=== PATIENT | female | born 1960 | race Caucasian/White ===

== ENCOUNTER → 2021-08-08 | Outpatient (CLI) | payer OTHER ==
[~2021-08-08] MED LIST: CATHETER FLUSH 10 ML SYR IV PRN; HOLD METFORMIN - RECEIVED CONTRAST 20 ML VIAL IV SCH; IOHEXOL 350 MG/ML 100 ML (OMNIPAQUE 350) VIAL IV ONE; NS 100 ML (IVPB) BAG IV ONE
[2021-08-08 08:49] LABS: POTASSIUM 3.4 MMOL/L (3.6-5.0)
[2021-08-08 08:50] LABS: ALBUMIN 3.7 GM/DL (3.2-4.5); BILIRUBIN,TOTAL 0.5 MG/DL (0.1-1.0); CALCIUM 9.3 MG/DL (8.5-10.1); CREATININE SERUM 0.74 MG/DL (0.60-1.30); TOTAL PROTEIN 7.1 GM/DL (6.4-8.2)
--- NOTE | 2021-08-08 18:01 | Diagnostic Imaging Report ---
CLINICAL INDICATIONS: Patient with abnormal ultrasound. Prior mass removed. Patient states it was a cyst and not malignant. EXAM: Axial CT scan of the neck soft tissues performed with 75 mL of Omnipaque 350 IV contrast. Sagittal and coronal reformatted images were created. COMPARISON: None. FINDINGS: There is a low-density mass with peripheral thickening located in the right lateral upper neck region which is just below the level of the right parotid gland tail. This mass measures 3.2 cm x 2.3 cm x 2.8 cm (AP x Trans x CC). This mass has a lobulated configuration and there is no adjacent fat stranding. This mass abuts the lateral aspect of the right sternocleidomastoid muscle. There is no other neck soft tissue mass seen. No significant lymphadenopathy. Salivary glands are unremarkable. Thyroid gland is unremarkable. There is asymmetry of the right posterior hypopharyngeal wall which is difficult to delineate on this exam. There is no fat plane between this area and the right longus coli muscle. There is nonspecific prominence of the supraglottic larynx with no definitive measurable mass. Thyroid gland is unremarkable. The visualized portions of the nasopharynx, and oropharynx are unremarkable. Visualized portions of the lower cavity, tongue, sublingual and submandibular regions are unremarkable. Neck vascular structures show no significant abnormality. Emphysematous lung disease is seen. Limited visualization of the intracranial structures are unremarkable. There is complete consolidation of the left maxillary sinus. The remainder of the paranasal sinuses are unremarkable. Mastoid air cells are clear. Cervical spine degenerative disease is noted. IMPRESSION: 1: There is a cystic mass involving the right upper lateral aspect of the neck which abuts the outer portion of the right sternocleidomastoid muscle and is just inferior to the right parotid gland tail. There is no adjacent fat stranding. This lesion is nonspecific and considerations may include a metastatic necrotic lymph node. Solitary Whitelaw's tumor cannot be excluded. Since there is no adjacent inflammation an infected cyst or abscess is unlikely. 2: There is complete consolidation of the left maxillary sinus. 3: The remainder of this exam shows no other significant abnormality. Dictated by: Dictated on workstation # [id number]
== END ==
LOC: LAB FS 08:02
PROVIDERS: ATTEND Nurse Practitioner
DX: J32.0 Chronic maxillary sinusitis (principal); R22.1 Localized swelling, mass and lump, neck
CPT/HCPCS: 36415; 70491; 80053; Q9967

== ENCOUNTER → 2022-03-23 | Outpatient (CLI) | payer OTHER ==
[2022-03-23 10:27] LABS: POTASSIUM 4.4 MMOL/L (3.6-5.0)
[2022-03-23 10:28] LABS: ALBUMIN 3.9 GM/DL (3.2-4.5); BILIRUBIN,TOTAL 0.4 MG/DL (0.1-1.0); CALCIUM 9.5 MG/DL (8.5-10.1); CREATININE SERUM 0.78 MG/DL (0.60-1.30); TOTAL PROTEIN 7.5 GM/DL (6.4-8.2)
--- NOTE | 2022-03-23 16:00 | Diagnostic Imaging Report ---
PROCEDURE: CT neck soft tissue with contrast. TECHNIQUE: Multiple contiguous axial images were obtained through the neck after the administration of contrast. Auto Exposure Controls were utilized during the CT exam to meet ALARA standards for radiation dose reduction. INDICATION: Follow-up cystic neck mass. COMPARISON: 08/08/2021. FINDINGS: There is stable to slight increase in size in the cystic lesion within the right parotid gland measuring 2.7 x 1.7 cm and 2.5 cm craniocaudal, previously measuring 2.5 x 1.6 x 2.5 cm. There is stable appearance of a more solid component in the superior aspect of this lesion. No mass is seen within the left parotid gland. No lymphadenopathy in the neck. The submandibular gland and thyroid have a normal appearance. The posterior nasopharynx and oropharynx demonstrate appropriate symmetry. There is no displacement of the parapharyngeal fat planes. There is no abnormal process evident within the prevertebral or retropharyngeal space. There is no evidence of abnormal thickening of the epiglottis or aryepiglottic folds. The vocal folds appear symmetric. The vascular structures the neck demonstrate no evidence of high-grade stenosis on this nondedicated exam. Emphysema is seen in the lung apices. The visualized intracranial contents demonstrate no evidence of pathologic intracranial enhancement or intracranial mass effect. Visualized orbital contents are unremarkable. Chronic sinusitis is seen in the left maxillary sinus. The mastoids and middle ears are clear. No acute osseous abnormality in the cervical spine. IMPRESSION: 1. Stable to slight increase in size in the cystic lesion within the right parotid gland. Recommend continued follow-up as indicated and, if not already performed, surgical consultation. 2. No lymphadenopathy in the neck. No new mass or fluid collection. 3. Chronic sinusitis in the left maxillary sinus. Dictated by: Dictated on workstation # [id number]
== END ==
LOC: RAD FS 09:45
PROVIDERS: ATTEND Nurse Practitioner
DX: J32.0 Chronic maxillary sinusitis (principal); R22.1 Localized swelling, mass and lump, neck; I10 Essential (primary) hypertension
CPT/HCPCS: 36415; 70491; 80053; Q9967